=== PATIENT | male | born 1955 | race Caucasian/White ===

== ENCOUNTER 2017-01-09 19:30 | Emergency (ER) | payer OTHER ==
[~2017-01-09] VITALS: Ht 170.2 cm; Wt 90.7 kg
[2017-01-09 19:32] VITALS: TEMP 36.8; Ht 170.2 cm; Wt 90.7 kg
[2017-01-09] MEDS ORDERED: CEFTRIAXONE SOD INJ 1 GM ADDVIAL IV STA (19:40)
--- NOTE | 2017-01-09 19:54 | EMERGENCY ROOM VISIT NOTE ---
History Report prepared by Jocy: Kenneth Watson Under the Supervision of: Dr. Viviana Thomas M.D. First contact with patient: 19:38 Chief Complaint: HEMATURIA Stated Complaint: BLOOD IN URINE,SWELLING History of Present Illness The patient is a 61 year old male who presents to the Emergency Room with complaints of persistent penis pain for the past 1.5 weeks. The patient first noticed the pain when he attempted to "squeeze" his urethra shut to cease voiding when he was about to overflow a bottle. The pain is increased with urination. The patient also noticed a small amount of blood in the toilet bowl ( he was sitting down to urinate). The patient notes that skin appeared to peel off of the head of his penis. He is circumcised. The patient denies scrotal or testicular pain. The patient notes that over one month ago the genital area was struck by the handle of his skid mold unloader. The patient has a history of psoriasis. He has a prescription cream but is not sure if it is a steroid. He follows up with [facility] in [place]. The patient also has history of hemochromatosis. He is a smoker. Source of History: patient Onset: 1.5 weeks ago Position: other (penis) Timing: other (persistent) Modifying Factors (Worsening): urination Associated Symptoms: + urinary symptoms (hematuria) Review of Systems See HPI for pertinent positives & negatives. A total of 10 systems reviewed and were otherwise negative. Past Medical & Surgical Medical Problems: (1) Hemochromatosis (2) Psoriasis Family History No pertinent family history Social History Smoking Status: Current Every Day Smoker Drug Use: none Marital Status: Housing Status: lives with family Occupation Status: employed Current/Historical Medications Scheduled Aspirin (Aspirin Ec), 81 MG PO DAILY Cephalexin Monohydrate (Keflex), 500 MG PO QID Citalopram Hydrobromide (Celexa), 40 MG PO DAILY Meloxicam (Mobic), 7.5 MG PO DAILY Omeprazole (Prilosec), 20 MG PO DAILY Allergies Coded Allergies: No Known Allergies (Unverified , 01/09/17) Physical Exam Vital Signs Date Time Temp Pulse Resp B/P (MAP) Pulse Ox O2 Delivery O2 Flow Rate FiO2 01/09/17 22:15 66 18 153/98 96 01/09/17 20:49 71 01/09/17 19:32 36.8 78 18 169/99 95 Room Air Physical Exam Vital signs reviewed. General: Well-appearing male, in no significant distress. HEENT: No scleral icterus, PERRLA, neck supple. Atraumatic. Cardiovascular: Regular rate and rhythm, no extra sounds. Pulmonary: Clear to auscultation bilaterally, normal work of breathing. Abdomen: Soft, nontender, nondistended, positive bowel sounds. Musculoskeletal: Atraumatic, no peripheral edema. Neurologic: Patient awake alert and oriented x 3, full strength in all 4 extremities. Cranial nerves 2 through 12 grossly intact. Skin: Warm, dry, no rash : Erythema and induration to the glans. Circumcised penis, no discharge, no open lesions. Scrotum is intact. Medical Decision & Procedures Laboratory Results 01/09/17 20:24 Red Blood Count 4.27, Mean Corpuscular Volume 98.6, Mean Corpuscular Hemoglobin 33.7, Mean Corpuscular Hemoglobin Concent 34.2, Mean Platelet Volume 10.3, Neutrophils (%) (Auto) 46.3, Lymphocytes (%) (Auto) 42.5, Monocytes (%) (Auto) 7.8, Eosinophils (%) (Auto) 2.7, Basophils (%) (Auto) 0.4, Neutrophils # (Auto) 3.10, Lymphocytes # (Auto) 2.84, Monocytes # (Auto) 0.52, Eosinophils # (Auto) 0.18, Basophils # (Auto) 0.03 01/09/17 20:24 Test 01/09/17 20:14 01/09/17 20:24 Urine Color DK YELLOW Urine Appearance CLEAR (CLEAR) Urine pH 5.0 (4.5-7.5) Urine Specific [place] 1.022 (1.000-1.030) Urine Protein NEG (NEG) Urine Glucose (UA) NEG (NEG) Urine Ketones TRACE (NEG) Urine Occult Blood NEG (NEG) Urine Nitrite NEG (NEG) Urine Bilirubin NEG (NEG) Urine Urobilinogen NEG (NEG) Urine Leukocyte Esterase NEG (NEG) White Blood Count 6.69 K/uL (4.8-10.8) Red Blood Count 4.27 M/uL (4.7-6.1) Hemoglobin 14.4 g/dL (14.0-18.0) Hematocrit 42.1 % (42-52) Mean Corpuscular Volume 98.6 fL (80-100) Mean Corpuscular Hemoglobin 33.7 pg (25-34) Mean Corpuscular Hemoglobin Concent 34.2 g/dl (32-36) Platelet Count 225 K/uL (130-400) Mean Platelet Volume 10.3 fL (7.4-10.4) Neutrophils (%) (Auto) 46.3 % Lymphocytes (%) (Auto) 42.5 % Monocytes (%) (Auto) 7.8 % Eosinophils (%) (Auto) 2.7 % Basophils (%) (Auto) 0.4 % Neutrophils # (Auto) 3.10 K/uL (1.4-6.5) Lymphocytes # (Auto) 2.84 K/uL (1.2-3.4) Monocytes # (Auto) 0.52 K/uL (0.11-0.59) Eosinophils # (Auto) 0.18 K/uL (0-0.5) Basophils # (Auto) 0.03 K/uL (0-0.2) RDW Standard Deviation 44.3 fL (36.4-46.3) RDW Coefficient of Variation 12.3 % (11.5-14.5) Immature Granulocyte % (Auto) 0.3 % Immature Granulocyte # (Auto) 0.02 K/uL (0.00-0.02) Anion Gap 7.0 mmol/L (3-11) Est Creatinine Clear Calc Drug Dose 58.8 ml/min Estimated GFR () 62.0 Estimated GFR (Non- 53.5 BUN/Creatinine Ratio 14.2 (10-20) Calcium Level 9.0 mg/dl (8.5-10.1) Total Bilirubin 0.2 mg/dl (0.2-1) Direct Bilirubin < 0.1 mg/dl (0-0.2) Aspartate Amino Transf (AST/SGOT) 24 U/L (15-37) Alanine Aminotransferase (ALT/SGPT) 37 U/L (12-78) Alkaline Phosphatase 90 U/L (45-117) Total Protein 6.8 gm/dl (6.4-8.2) Albumin 3.5 gm/dl (3.4-5.0) Laboratory results per my review. Medications Administered Medications (Trade) Dose Ordered Sig/Tia Route Start Time Stop Time Status Last Admin Dose Admin Ceftriaxone Sodium (Rocephin Inj) 1 gm NOW STAT IV 01/09/17 19:40 01/09/17 19:50 DC 01/09/17 20:34 1 GM ED Course 1939: Past medical records reviewed. The patient was evaluated in room B4b. A complete history and physical examination was performed. 1939: Rocephin 1 gm IV. 2144: Reassessed the patient. Discussed the findings with the patient. He verbalized understanding and agreement of the treatment plan. The patient is ready for discharge. Medical Decision Differential Diagnosis: Balanitis, phimosis, paraphimosis, urethritis, trauma. Blood Pressure Screening: Patient was found to have an elevated blood pressure and was referred to their primary doctor for recheck and further treatment. Medication Reconciliation: I attest that I have personally reviewed the patient' s current medication list. This pt was evaluated and appeared to be in no distress. IV access was obtained and lab work was drawn. Pt lab work is unrevealing. UA is negative, no blood. PE is significant for balanitis. He was given IV ceftriaxone (d/t h/o psoriasis of glans and possibility of bacterial involvement) and asked to use clotrimazole cream topically. An US was ordered d/t c/o hematuria, but cancelled with neg UA. Pt was referred to urology and can have outpt UA if necessary. He and his were informed of the findings. He will return to the ED for worsening of symptoms or medical concerns. Impression Primary Impression: Balanitis Scribe Attestation The scribe's documentation has been prepared under my direction and personally reviewed by me in its entirety. I confirm that the note above accurately reflects all work, treatment, procedures, and medical decision making performed by me. Departure Information Dispostion Home / Self-Care Prescriptions Cephalexin Monohydrate (Keflex) 500 Mg Cap 500 MG PO QID, #28 CAP Prov: Viviana Thomas M.D. 01/09/17 Referrals Fer Carvalho M.D. (PCP) Mauro Garner M.D. Forms HOME CARE DOCUMENTATION FORM, IMPORTANT VISIT INFORMATION, WORK / SCHOOL INSTRUCTIONS Patient Instructions ED Debbie, My [facility] Additional Instructions Diagnosis: Balanitis Keflex 500 mg 4 times daily for 7 days. Clotrimazole 1% cream to the tip of the penis 3 times daily for 7 days. Wear underwear and attempt to keep as dry as possible. Wash with a mild soap and water twice daily and dry thoroughly with a clean towel. Follow up with urology within the next 1-2 weeks. See contact information below. The ED binder caser can assist with establishing an appointment. Please call [phone] if you need assistance. Return to the emergency department for worsening of symptoms or any medical concerns.
[2017-01-09 20:38] LABS: BASO % 0.4 %; BASO ABS # 0.03 K/uL (0-0.2); COMPLETE YES; EOS % 2.7 %; HEMATOCRIT 42.1 % (42-52); IG% 0.3 %; LYMPH % 42.5 %; LYMPH ABS # 2.84 K/uL (1.2-3.4); MEAN CELL VOLUME 98.6 fL (80-100); MEAN CORPUSCULAR HEMOGLOBIN 33.7 pg (25-34); MEAN CORPUSCULAR HGB CONC 34.2 g/dl (32-36); MEAN PLATELET VOLUME 10.3 fL (7.4-10.4); MONO % 7.8 %; NEUT % 46.3 %; PLATELET COUNT 225 K/uL (130-400); RED BLOOD COUNT 4.27 M/uL (4.7-6.1); WHITE BLOOD COUNT 6.69 K/uL (4.8-10.8)
[2017-01-09 20:58] LABS: ALT/SGPT 37 U/L (12-78); BLOOD UREA NITROGEN 20 mg/dl (7-18); BUN/CREATININE RATIO 14.2 (10-20); CARBON DIOXIDE 28 mmol/L (21-32); CHLORIDE 107 mmol/L (98-107); GLUCOSE 100 mg/dl (70-99); POTASSIUM 3.8 mmol/L (3.5-5.1); SODIUM 142 mmol/L (136-145)
[2017-01-09] MEDS ORDERED: CITA40TA12 PO (21:00)
[2017-01-09 21:01] LABS: ALKALINE PHOSPHATASE 90 U/L (45-117); AST/SGOT 24 U/L (15-37)
[2017-01-09] MEDS ORDERED: ASPI81TA28 PO (21:01)
[2017-01-09] MEDS ORDERED: PRLSR20 PO (21:01)
[2017-01-09 21:05] LABS: URINE APPEARANCE CLEAR (CLEAR); URINE BILIRUBIN NEG (NEG); URINE COLOR DK YELLOW; URINE NITRITE NEG (NEG); URINE SPECIFIC GRAVITY 1.022 (1.000-1.030); UROBILINOGEN NEG (NEG); ZZUR CULT IF INDIC CLEAN CATCH NO
[2017-01-09 21:06] LABS: MANUAL MICROSCOPIC REQUIRED? NO; REVIEW REQ? NO
[2017-01-09] MEDS ORDERED: MELO7.5T5 PO (21:07)
[2017-01-09] MEDS ORDERED: CEPH500C PO (22:01)
[2017-01-09 22:15] VITALS: BP 153/98; PULSE 66; O2SAT 96
== END 2017-01-09 22:16 | disposition home or self-care (01) ==
LOC: C.EDB 19:33
DX: N48.1 Balanitis (principal); F17.200 Nicotine dependence, unspecified, uncomplicated; Z79.82 Long term (current) use of aspirin; Z79.899 Other long term (current) drug therapy

== ENCOUNTER → 2017-01-14 | Outpatient (CLI) | payer OTHER ==
[~2017-01-14] MED LIST: ASPI81TA28 PO; CEPH500C PO; CITA40TA12 PO; MELO7.5T5 PO; PRLSR20 PO
== END | disposition home or self-care (01) ==
LOC: C.PATHSPEC 15:29
PROVIDERS: ATTEND Urology
DX: R31.9 Hematuria, unspecified (principal)

== ENCOUNTER 2019-01-05 18:30 | Inpatient (IN) ==
--- OUTSIDE RECORDS SUMMARY | 2019-01-05 21:10 | External Medical Summary | Continuity of Care Document ---
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 Kourtney Garner Start: 04-Jan-2018 Quantity: 1 30 GM Tube Refills: 1 Triamcinolone Acetonide 0.1 % External C ream; APPLY 2-3 TIMES DAILY TO AFFECTED AREA(S). Kourtney Garner Start: 04-Jan-2018 Quantity: 1 30 GM Tube Refills: 1 Nystatin [id number] UNIT/GM External Ointmen t; APPLY 2-3 TIMES DAILY TO AFFECTED AREA(S). Kourtney Garner Start: 14-Jan-2017 Quantity: 1 30 GM Tube Refills: 1 Triamcinolone Acetonide 0.1 % External C ream; APPLY 2-3 TIMES DAILY TO AFFECTED AREA(S). Kourtney Garner Start: 14-Jan-2017 Quantity: 1 30 GM Tube Refills: 1 Procedures Procedures not documented Immunizations Immunizations not documented Family History Mother Family history of diabetes mellitus (V18.0) (Z83.3) Status: Active Family history of cardiac disorder (V17.49) (Z82.49) Status: Active Family history of malignant neoplasm of uterus (V16.49) (Z80 .49) Status: Active Father Family history of diabetes mellitus (V18.0) (Z83.3) Status: Active Family history of cardiac disorder (V17.49) (Z82.49) Status: Active Social History - Smoking Status Smoker. current status unknown Plan of Treatment Planned Encounters Appointment; Mauro Garner M.D. Start: 14-Feb-2019 9 :40 Request Planned Observations Planned Goals not documented Results No Known Results Results not documented Encounters Appointment; Mauro Garner M.D. 13-Feb-2018 14:20 Encounter Diagnosis: Problem not documented Appointment; Mauro Garner M.D. 04-Jan-2018 9:55 Encounter Diagnosis: Problem not documented Appointment; Mauro Garner M.D. 14-Jan-2017 12:00 Encounter Diagnosis: Problem not documented Appointment; Mauro Garner M.D. 14-Feb-2019 9:40 Encounter Diagnosis: Problem not documented
[2019-01-05] MEDS ORDERED: ONDANSETRON INJ 2 MG/ML 2 ML VIAL IV PRN (23:16)
--- NOTE | 2019-01-05 23:22 | History & Physical Report ---
Date of Service January 05, 2019 Assessment & Plan (1) GI bleed: 63-year-old male was transferred from [facility] on 05 January 2019 for rectal bleeding. GI bleeding: Noticed for first time on evening of . Darker-red stool. No history of colonoscopy. Denies associated pain or vomiting. Suspect lower GI bleed. - Per accompanying [facility] records, hemoglobin 12.3 at 1516. Heme positive stool. CT a/p with contrast showed scattered diverticula in the sigmoid colon without radiographic evidence of acute diverticulitis. Apparently was transferred due to no GI on-call there this weekend. - On arrival here, afebrile, HR 66, BP 114/66. Has a distended abdomen that is non-tender. - Will make n.p.o. except meds. Start IVF. Serial checks of hemoglobin. Consult gastroenterology. Chest pain: Patient says earlier today he had "pinpricks" in his chest similar to when he had his NSTEMI 2 months ago. On arrival to [facility], denies same or any chest symptoms at all. - At [facility], TnI negative at 1516. Their EKG was read as sinus bradycardia, rate 54, normal axis without acute ST changes. - Will check TnI here and EKG in AM. CKD stage 2: At [facility], Cr 1.6. BUN 28. Will recheck in a.m. Hemochromatosis: Unclear level of severity. Fatty liver: CT a/p with contrast at [facility] incidentally showed "fatty liver, also similar in appearance to ultrasound." Right renal cyst: CT a/p with contrast at [facility] incidentally showed a "probable benign cyst projecting posterior from the midpole of the right kidney. Renal ultrasound in 2016 demonstrated this to be a 12 mm in size has not significantly changed. Ongoing medical issues: - NSTEMI: S/p stents x 2 in October 2018. On lisinopril and metoprolol. --- Holding his aspirin and Plavix due to GI bleed. Also held his fish oil. - Hypertension: On lisinopril. - GERD: On ranitidine. - Depression: On Celexa. - TAM: Wears CPAP at night. Code status: Full code. Diet: N.p.o. except meds. DVT prophy: Chemical prophylaxis held due to GI bleed. SCDs. PT/OT: Deferred. Disbo: Admit to [facility] with telemetry. At baseline lives at home with his . (2) Chest pain: (3) Chronic kidney disease (CKD): (4) Hemochromatosis: (5) Fatty liver: (6) Renal cyst, right: (7) History of non-ST elevation myocardial infarction (NSTEMI): (8) Hypertension: (9) GERD (gastroesophageal reflux disease): (10) Depression: (11) TAM (obstructive sleep apnea): History of Present Illness Primary Care Provider: Fer Carvalho 63-year-old male presented to [facility] earlier on day of admission for a "reddish-brown" bowel movement the night before and then again twice during the day today. He says he has had some intermittent dizziness over the past week but denies this at present. Otherwise he denies any history of bloody bowel movements, abdominal pain, nausea or vomiting, or other acute concerns. Has never had a colonoscopy. However, on review of systems, he says earlier today he had "10 little pinpricks in my chest". He says that this worried him a little bit because this is the same symptom he had prior to more severe chest pain that was ultimately diagnosed as an NSTEMI in October 2018 in [place], now s/p 2 stents. At present, he says that symptom has resolved but was last noticed in the emergency department at [facility]. He denies any concurrent shortness of breath throughout this time. 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 and No Beliefs That Will Affect Care: None Current Living Situation: Spouse Other Information That Helps Us Care for You: No Feels Safe at Home: Yes Safety Concerns: Feels Safe At This Time Smoking Status: Current every day smoker Tobacco Type: cigarettes Cigarettes Per Day: 20 Second Hand Exposure: Yes Tobacco Cessation Education Requested by Patient: No Hx Alcohol Use: No Hx Substance Use: No Review of Systems Review of Systems: Constitutional: Denies fevers, chills, focal weakness Eyes: Denies any visual loss or diplopia ENT: Denies any ear/nose/throat pain or difficulty speaking or swallowing Respiratory: Denies any dyspnea, cough, hemoptysis Cardiovascular: Denies any chest pain or feeling of edema, though did have "pinpricks" Gastrointestinal: Denies any abdominal pain, nausea/vomiting/diarrhea Musculoskeletal: Denies any acute extremity pains, myalgias, or focal weakness Skin: Denies any known acute rashes or lesions Neuro: Denies any headache, acute focal weakness or numbness, or difficulties with speech or swallow. Psych: Denies any recent exacerbation of depression or anxiety Physical Exam Physical Exam: GENERAL: Awake, alert, well-appearing and pleasantly conversational, in no acute distress HENT: Normocephalic, atraumatic. EYES: Normal conjunctiva. Sclera non-icteric. NECK: Inspection normal. Non-tender. Supple and full ROM. No nuchal rigidity. CARDIAC: +S1S2 RRR, no murmurs. RESPIRATORY: Clear to auscultation. No wheezes or rales. Normal respiratory effort. GI: +BS, soft, positive moderately distended. No tenderness to palpation. No rebound or guarding. EXTREMITIES: No pedal edema or calf tenderness. Moving all extremities naturally and easily. NEURO: No gross neuro deficits. Results & Data Vital Signs (Past 12 Hours) Vital Signs Temp Pulse Resp BP Pulse Ox 01/05/19 21:40 36.4 C L 66 20 114/66 92 Code Status & VTE Plan Code Status Full code VTE Prophylaxis Plan VTE Prophylaxis will be ordered: Yes Supervising Physician Co-Signing Physician Notes Attending addendum: I have physically seen this patient, have supervised the medical residents activities, and agree with the H&P unless as otherwise noted. Assessment and Plan: GI bleed/anemia/hemochromatosis with unknown baseline hemoglobin- Transferred from [facility] ED No previous colonoscopy H&H every 6 hours. NPO IV fluids. Consult gastroenterology. Chest pain/CAD/NSTEMI/coronary artery stents x2 in 10/2018- Patient reports pinprick sensation similar to his NSTEMI. The patient will be admitted to telemetry for serial cardiac enzymes, serial EKG's, cardiac rhythm monitoring and a 2-D echocardiogram with Dopplers. Aspirin and clopidogrel both being held due to GI bleed. Consult cardiology. Remainder of orders and notations as noted. PG Care Time/CCT Total # of Minutes Spent Total Time Spent with Patient: Total time spent is greater than 50% in coordination of care (as documented) at patient's floor/unit and/or counseling patient: Resident Activity Tracking Resident Involvement: Resident Care Provided Care Provided: Adult Hospital Medicine
[2019-01-05] MEDS: LACTATED RINGER'S 1,000 ML IV SCH (23:39)
[2019-01-05 23:58] LABS: Hematocrit (blood only) 31.7 % (42-52); Hemoglobin 10.9 g/dL (14.0-18.0)
[2019-01-06 06:40] LABS: Basophils # (auto) 0.01 K/uL (0-0.2); Basophils % (auto) 0.2 %; Eosinophils # (auto) 0.15 K/uL (0-0.5); Eosinophils % (auto) 3.6 %; Hematocrit (blood only) 32.2 % (42-52); Hemoglobin 10.9 g/dL (14.0-18.0); Immature Granulocytes # (auto) 0.01 K/uL (0.00-0.02); Immature Granulocytes % (auto) 0.2 %; Lymphocytes # (auto) 2.08 K/uL (1.2-3.4); Lymphocytes % (auto) 49.9 %; Mean Corpuscular Hgb Conc 33.9 g/dL (32-36); Mean Corpuscular Volume 99.1 fL (80-100); Mean Platelet Volume 9.8 fL (7.4-10.4); Monocytes # (auto) 0.41 K/uL (0.11-0.59); Monocytes % (auto) 9.8 %; Neutrophils # (auto) 1.51 K/uL (1.4-6.5); Neutrophils % (auto) 36.3 %; Platelet Count 193 K/uL (130-400); RDW Coefficient of Variation 12.2 % (11.5-14.5); RDW Standard Deviation 44.1 fL (36.4-46.3); Red Blood Count 3.25 M/uL (4.7-6.1); White Blood Count 4.17 K/uL (4.8-10.8)
[2019-01-06 07:10] LABS: BUN Creatinine Ratio 18.3 (10-20); Calcium 8.8 mg/dl (8.5-10.1); Creatinine Clr Calc Pharmacy 52.5 ml/min; Est GFR (African American) 55.3; Est GFR (Non-African American) 47.7; Potassium 4.5 mmol/L (3.5-5.1)
[2019-01-06] MEDS: LISINOPRIL 5 MG TAB PO SCH (08:26)
[2019-01-06] MEDS: CITALOPRAM 40 MG TAB PO SCH (08:26)
[2019-01-06] MEDS: METOPROLOL TARTRATE 25 MG TAB PO SCH ×2 (08:27→20:34)
--- NOTE | 2019-01-06 09:23 | Hospitalist Progress Note ---
Date of Service January 06, 2019 Assessment & Plan (1) GI bleed: 63-year-old male was transferred from [facility] on 05 January 2019 for rectal bleeding. 4-5 episodes of what patient describes as "plum colored" stools no associated abdominal pain, no vomiting or hematemesis Hb was 12 yesterday, down to 10.9 last night but stable at 10.9 this morning will continue to treat Hb allow clear liquids today continue Protonix Dr. Tavarez consulted, will see later today CT from [facility] showed diverticular disease but no active diverticulitis Right renal cyst: CT a/p with contrast at [facility] incidentally showed a "probable benign cyst projecting posterior from the midpole of the right kidney. Renal ultrasound in 2016 demonstrated this to be a 12 mm in size has not significantly changed. Ongoing medical issues: - NSTEMI: S/p stents x 2 in October 2018. On lisinopril and metoprolol. --- Holding his aspirin and Plavix due to GI bleed. Also held his fish oil. - Hypertension: On lisinopril. - GERD: On ranitidine. - Depression: On Celexa. - TAM: Wears CPAP at night. Code status: Full code. Diet: N.p.o. except meds. DVT prophy: Chemical prophylaxis held due to GI bleed. SCDs. PT/OT: Deferred. Disbo: Admit to [facility] with telemetry. At baseline lives at home with his . (2) Chest pain: no further chest pain today, described a "pin prick" sensation yesterday and last night troponin negative x 2 and no ischemic changes on EKG had NSTEMI 2 months ago with two drug eluting stents placed will resume Aspirin 81mg for time being given his recent stents, continue to hold Plavix but resume once okay with GI if he has chest pain we will get EKG and troponin continue on tele (3) History of non-ST elevation myocardial infarction (NSTEMI): October 2018 no chest pain or cardiac events since that time was taking aspirin and Plavix prior to admission continue on aspirin since stents are recent, hold Plavix (safe since it is more than a month out) if bleeding would fruit or nut picker then hold the aspirin, but bleeding appears to have slowed down or stopped (4) Chronic kidney disease (CKD): stage II Cr stable at 1.52 (5) Hemochromatosis: unsure of what stage this is (6) Fatty liver: can be followed as outpatient (7) Renal cyst, right: (8) Hypertension: BP stable at 107/64 (9) GERD (gastroesophageal reflux disease): Protonix IV (10) Depression: (11) TAM (obstructive sleep apnea): CPAP Subjective patient feels well today, denies any further bloody stools he said that this occurred 4-5x at home, the last time was last evening prior to going to [facility] he described the stools as "plum" colored no abdominal pain, no vomiting, no hematemesis he confirms that the drug eluting stents were placed in October, two months ago no further chest pain, reviewed labs, troponin negative Hb was reportedly 12 at [facility], 10.9 last night and then 10.9 this morning as well ideally should be on the aspirin 81mg due to recent stents, can hold the Plavix will discuss with Dr. Tavarez about whether he needs urgent endoscopy or if it can wait until Tuesday, if so we can feed him Review of Systems Review of Systems: All systems reviewed & are unremarkable except as noted in HPI & below Constitutional: no fever, no chills, no sweats, no fatigue and no weakness Respiratory: no cough and no dyspnea Cardiovascular: no chest pain and no edema Gastrointestinal: + blood in stools (plum colored stools, no pain associated with them); no abdominal pain, no nausea, no vomiting, no constipation and no diarrhea/loose stools Physical Exam Constitutional: WD/WN, vitals as above Eyes: PERRL, conjunctivae normal, anicteric sclerae ENMT: external ear and nose normal, oropharynx normal Neck: trachea midline, no thyromegaly Respiratory: normal respiratory effort, lungs clear to auscultation Cardiovascular: RRR, no murmur, no edema Gastrointestinal (Abdomen): normal bowel sounds, soft, nontender, no hepatosplenomegaly Musculoskeletal: no cyanosis or clubbing, extremities motor strength 5/5 Skin: no rashes, warm and dry Neurologic: patellar DTR's 2+ bilat, sensation intact and PERRL, EOMI, accommodation nl, no face palsy, no dysarthria Psychiatric: A+Ox3, euthymic affect Lymphatic: no cervical or axillary lymphadenopathy Results & Data Vital Signs (Past 12 Hours) Vital Signs Temp Pulse Pulse Resp BP Pulse Ox 01/06/19 09:00 56 L 01/06/19 07:41 36.6 C 51 L 18 107/64 95 01/06/19 04:38 36.1 C L 58 L 20 106/62 94 01/05/19 23:59 62 18 95 01/05/19 23:45 60 01/05/19 23:32 36.8 C 63 18 99/59 L 96 01/05/19 21:40 36.4 C L 66 20 114/66 92 Laboratory Results Laboratory Results - last 24 hr 01/05/19 01/05/19 01/05/19 23:30 23:30 23:30 WBC RBC Hgb 10.9 L Hct 31.7 L MCV MCH MCHC RDW Std Deviation RDW Coeff of Jud Plt Count MPV Immature Gran % (Auto) Neut % (Auto) Lymph % (Auto) [place] % (Auto) Eos % (Auto) Baso % (Auto) Immature Gran # (Auto) Neut # (Auto) Lymph # (Auto) [place] # (Auto) Eos # (Auto) Baso # (Auto) Sodium Potassium Chloride Carbon Dioxide Anion Gap BUN Creatinine Est Cr Clr Drug Dosing Est GFR ( Amer) Est GFR (Non-Af Amer) BUN/Creatinine Ratio Glucose Calcium Troponin I < 0.015 Hepatitis C Ab Screen Neg Blood Type Antibody Screen 01/05/19 01/06/19 01/06/19 23:30 06:16 06:16 WBC 4.17 L RBC 3.25 L Hgb 10.9 L Hct 32.2 L MCV 99.1 MCH 33.5 MCHC 33.9 RDW Std Deviation 44.1 RDW Coeff of Jud 12.2 Plt Count 193 MPV 9.8 Immature Gran % (Auto) 0.2 Neut % (Auto) 36.3 Lymph % (Auto) 49.9 [place] % (Auto) 9.8 Eos % (Auto) 3.6 Baso % (Auto) 0.2 Immature Gran # (Auto) 0.01 Neut # (Auto) 1.51 Lymph # (Auto) 2.08 [place] # (Auto) 0.41 Eos # (Auto) 0.15 Baso # (Auto) 0.01 Sodium 140 Potassium 4.5 Chloride 108 H Carbon Dioxide 27 Anion Gap 5.0 BUN 28 H Creatinine 1.52 H Est Cr Clr Drug Dosing 52.5 Est GFR ( Amer) 55.3 Est GFR (Non-Af Amer) 47.7 BUN/Creatinine Ratio 18.3 Glucose 98 Calcium 8.8 Troponin I Hepatitis C Ab Screen Blood Type O Positive Antibody Screen NEGATIVE 01/06/19 06:16 WBC RBC Hgb Hct MCV MCH MCHC RDW Std Deviation RDW Coeff of Jud Plt Count MPV Immature Gran % (Auto) Neut % (Auto) Lymph % (Auto) [place] % (Auto) Eos % (Auto) Baso % (Auto) Immature Gran # (Auto) Neut # (Auto) Lymph # (Auto) [place] # (Auto) Eos # (Auto) Baso # (Auto) Sodium Potassium Chloride Carbon Dioxide Anion Gap BUN Creatinine Est Cr Clr Drug Dosing Est GFR ( Amer) Est GFR (Non-Af Amer) BUN/Creatinine Ratio Glucose Calcium Troponin I < 0.015 Hepatitis C Ab Screen Blood Type Antibody Screen Medications Administered Current Inpatient Medications Aspirin (Ecotrin Ectab) [facility] [place] Stop: 02/05/19 09:14 Citalopram Hydrobromide (Celexa) 40 mg PO DAILY [facility] Stop: 02/05/19 08:59 Last Admin: 01/06/19 08:26 Dose: 40 mg Documented by: Lactated Ringer's (Lr) 1,000 mls @ 80 mls/hr IV .[id number] [facility] Stop: 02/04/19 23:29 Last Admin: 01/05/19 23:39 Dose: 80 mls/hr Documented by: Lisinopril (Zestril) 5 mg PO QAM [facility] Stop: 02/05/19 08:59 Last Admin: 01/06/19 08:26 Dose: 5 mg Documented by: Metoprolol Tartrate (Lopressor) 12.5 mg PO BID [facility] Stop: 02/05/19 08:59 Last Admin: 01/06/19 08:27 Dose: Not Given Documented by: Ondansetron HCl (Zofran) 4 mg IV Q6H PRN PRN Reason: Nausea Stop: 02/04/19 23:15 Ranitidine HCl (Zantac) 150 mg [facility] [place] Stop: 02/05/19 08:59 Last Admin: 01/06/19 08:26 Dose: 150 mg Documented by: PG Care Time/CCT Total # of Minutes Spent Total Time Spent with Patient: Total time spent is greater than 50% in co ordination of care (as documented) at patient's floor/unit and/or counseling patient:
[2019-01-06] MEDS: ASPIRIN 81 MG ECTAB PO SCH (10:24)
[2019-01-06] MEDS: LACTATED RINGER'S 1,000 ML IV SCH ×2 (11:32→23:16)
[2019-01-06 13:28] LABS: Hematocrit (blood only) 30.4 % (42-52); Hemoglobin 10.3 g/dL (14.0-18.0)
--- NOTE | 2019-01-06 15:00 | Gastrointestinal Consultation ---
Date of Consultation January 06, 2019 Assessment & Plan (1) GI bleed: GI bleed-most likely lower (diverticular) given absence of hemodynamic changes but could be upper with rapid transit (risk of that given ASA use) so cover with po protonix. Plan EGD and colonoscopy tuesday since bleeding has stopped. Proc and risks explained which include but not limited to med reaction, bleeding, perforation, aspiraiton adn missed lesions. Continue on clears. Start prep in am tomorrow to make sure is fully prepped by tuesday acute blood loss anemia--follow and transfuse prn GERD--on PPI History of Present Illness Reason for Consultation: GI bleeding Requesting Physician: Armand Glasgow MD Attending Physician: Flavio Turner DO History of Present Illness CC GI bleeding HPI Pt is on ASA and Plavix for heart stents he had recently. No previous GI bleeding. No EGD nor colonocopy in the past. No abd pain. Had dark red stool starting 01/04 pm went to [facility] with Hgb 12. [address] by their summary (do not see formal report) stated diverticulsoso and fatty liver. Pt last bm last night. Hgb essentially statble at 1300 at 10.3. PMH [place], GERD, hemochromatosis, CKD stage II, fatty liver FHx NC Allergies Allergy/AdvReac Type Severity Reaction Status Date / Time ticagrelor Allergy Shortness Verified 01/05/19 23:42 of breath Home Medications Home Medications Medication Instructions Recorded Confirmed Type ASPIRIN (ASPIRIN EC) 81 mg PO DAILY #0 01/09/17 History CITALOPRAM HYDROBROMIDE (CELEXA) 40 mg PO DAILY #0 tab 01/09/17 History Meloxicam (Mobic) 7.5 mg PO DAILY #0 tab 01/09/17 History OMEPRAZOLE (PRILOSEC) 20 mg PO DAILY #0 cap 01/09/17 History Patient History Social History Preferred Language: Amharic Communication Ability: Effective Farmer Vegetable Required: Yes and No Beliefs That Will Affect Care: None Current Living Situation: Spouse Other Information That Helps Us Care for You: No Feels Safe at Home: Yes Safety Concerns: Feels Safe At This Time Smoking Status: Current every day smoker Tobacco Type: cigarettes Cigarettes Per Day: 20 Second Hand Exposure: Yes Tobacco Cessation Education Requested by Patient: No Hx Alcohol Use: No Hx Substance Use: No Review of Systems Review of Systems: All systems reviewed & are unremarkable except as noted in HPI & below Physical Exam Constitutional: WD/WN, vitals as above Eyes: PERRL, conjunctivae normal, anicteric sclerae ENMT: external ear and nose normal, oropharynx normal Neck: normal visual inspection and trachea midline Respiratory: normal respiratory effort, lungs clear to auscultation Cardiovascular: RRR, no murmur, no edema Gastrointestinal (Abdomen): normal bowel sounds, soft, nontender, no hepatosplenomegaly Skin: normal turgor Neurologic: PERRL, EOMI, accommodation nl, no face palsy, no dysarthria Psychiatric: A+Ox3, euthymic affect Results & Data Vital Signs (Past 12 Hours) Vital Signs Temp Pulse Pulse Resp BP Pulse Ox 01/06/19 11:40 36.5 C 55 L 20 119/71 96 01/06/19 09:00 56 L 01/06/19 07:41 36.6 C 51 L 18 107/64 95 01/06/19 04:38 36.1 C L 58 L 20 106/62 94
[2019-01-06] MEDS: PANTOprazole 40 MG TAB PO SCH ×2 (15:44→20:36)
[2019-01-07 05:58] LABS: Basophils # (auto) 0.02 K/uL (0-0.2); Basophils % (auto) 0.4 %; Eosinophils # (auto) 0.14 K/uL (0-0.5); Eosinophils % (auto) 3.1 %; Hematocrit (blood only) 31.6 % (42-52); Hemoglobin 10.7 g/dL (14.0-18.0); Immature Granulocytes # (auto) 0.02 K/uL (0.00-0.02); Immature Granulocytes % (auto) 0.4 %; Lymphocytes # (auto) 1.58 K/uL (1.2-3.4); Lymphocytes % (auto) 34.8 %; Mean Corpuscular Hgb Conc 33.9 g/dL (32-36); Mean Corpuscular Volume 99.4 fL (80-100); Monocytes # (auto) 0.43 K/uL (0.11-0.59); Monocytes % (auto) 9.5 %; Neutrophils # (auto) 2.35 K/uL (1.4-6.5); Neutrophils % (auto) 51.8 %; Platelet Count 190 K/uL (130-400); RDW Coefficient of Variation 12.1 % (11.5-14.5); RDW Standard Deviation 43.8 fL (36.4-46.3); Red Blood Count 3.18 M/uL (4.7-6.1); White Blood Count 4.54 K/uL (4.8-10.8)
[2019-01-07 06:26] LABS: Partial Thromboplastin Time 25.8 Seconds (21.0-31.0); Prothrombin Time 10.6 Seconds (9.0-12.0)
[2019-01-07 06:28] LABS: Albumin Level 3.1 gm/dl (3.4-5.0); BUN Creatinine Ratio 13.6 (10-20); Calcium 8.5 mg/dl (8.5-10.1); Creatinine Clr Calc Pharmacy 58.7 ml/min; Est GFR (African American) 63.3; Est GFR (Non-African American) 54.6; Potassium 4.1 mmol/L (3.5-5.1)
[2019-01-07 06:40] LABS: Albumin Globulin Ratio 1.1 (0.9-2); Bilirubin,Total 0.4 mg/dl (0.2-1); Globulin 2.7 gm/dl (2.5-4.0); Total Protein 5.8 gm/dl (6.4-8.2)
[2019-01-07] MEDS ORDERED: POLYETHYLENE GLYCOL 3350 238 GM BTL PO SCH (08:00)
[2019-01-07] MEDS: PANTOprazole 40 MG TAB PO SCH ×2 (08:52→21:36)
[2019-01-07] MEDS: CITALOPRAM 40 MG TAB PO SCH (08:52)
[2019-01-07] MEDS: ASPIRIN 81 MG ECTAB PO SCH (08:52)
[2019-01-07] MEDS: LISINOPRIL 5 MG TAB PO SCH (08:52)
[2019-01-07] MEDS: METOPROLOL TARTRATE 25 MG TAB PO SCH ×2 (08:52→21:36)
--- NOTE | 2019-01-07 10:04 | Hospitalist Progress Note ---
Date of Service January 07, 2019 Assessment & Plan (1) GI bleed: 63-year-old male was transferred from [facility] on 05 January 2019 for rectal bleeding. 4-5 episodes of what patient describes as "plum colored" stools no associated abdominal pain, no vomiting or hematemesis had a large bloody BM morning on 01/07, no pain, appears to be a lower GI bleed appreciate GI consult, most likely a diverticular bleed plan for EGD and colonoscopy tomorrow, completing prep today repeat Hb at 2pm today clear liquids, NPO after midnight (2) Chest pain: no further chest pain during admission, described a "pin prick" sensation prior to admission troponin negative x 2 and no ischemic changes on EKG had NSTEMI 2 months ago with two drug eluting stents placed hold aspirin, continue to hold Plavix but resume once okay with GI if he has chest pain we will get EKG and troponin continue on tele (3) History of non-ST elevation myocardial infarction (NSTEMI): October 2018 no chest pain or cardiac events since that time was taking aspirin and Plavix prior to admission will hold aspirin now with large bloody stool this morning, hold Plavix (safe since it is more than a month out) resume antiplatelets as soon as it is okay with GI (4) Chronic kidney disease (CKD): stage II Cr stable at 1.36 (5) Hemochromatosis: unsure of what stage this is (6) Fatty liver: can be followed as outpatient (7) Renal cyst, right: seen on imaging (8) Hypertension: BP stable (9) GERD (gastroesophageal reflux disease): Protonix PO BID Protonix IV is on back order (10) Depression: mood is stable (11) TAM (obstructive sleep apnea): CPAP HS Subjective patient feeling fine, no abdominal pain, no chest pain or dyspnea he started the prep this morning for colonoscopy he had a large, uche bloody BM this morning, first time he has moved bowels in over 24 hours no vomiting, no hematemesis, no epigastric pain Hb was up to 10.7 this morning, this was prior to his hematochezia will recheck at 2pm vitals stable patient requesting to go outside and smoke, offered him a nicotine patch Review of Systems Review of Systems: All systems reviewed & are unremarkable except as noted in HPI & below Constitutional: no fever, no chills, no sweats, no fatigue and no weakness Respiratory: no cough and no dyspnea Cardiovascular: no chest pain and no edema Gastrointestinal: + blood in stools; no abdominal pain, no nausea, no vomiting, no constipation and no diarrhea/loose stools Physical Exam Constitutional: WD/WN, vitals as above Eyes: PERRL, conjunctivae normal, anicteric sclerae ENMT: external ear and nose normal, oropharynx normal Neck: trachea midline, no thyromegaly Respiratory: normal respiratory effort, lungs clear to auscultation Cardiovascular: RRR, no murmur, no edema Gastrointestinal (Abdomen): normal bowel sounds, soft, nontender, no hepatosplenomegaly Musculoskeletal: no cyanosis or clubbing, extremities motor strength 5/5 Skin: no rashes, warm and dry Neurologic: patellar DTR's 2+ bilat, sensation intact and PERRL, EOMI, accommodation nl, no face palsy, no dysarthria Psychiatric: A+Ox3, euthymic affect Lymphatic: no cervical or axillary lymphadenopathy Results & Data Vital Signs (Past 12 Hours) Vital Signs Temp Pulse Pulse Resp BP Pulse Ox 01/07/19 07:17 36.4 C L 56 L 19 117/72 92 01/07/19 07:15 55 L 01/07/19 03:19 36.5 C 54 L 20 113/62 94 01/07/19 01:20 56 L 01/06/19 22:22 36.5 C 59 L 20 121/70 95 Laboratory Results Laboratory Results - last 24 hr 01/06/19 01/07/19 01/07/19 13:17 05:30 05:30 WBC 4.54 L RBC 3.18 L Hgb 10.3 L 10.7 L Hct 30.4 L 31.6 L MCV 99.4 MCH 33.6 MCHC 33.9 RDW Std Deviation 43.8 RDW Coeff of Jud 12.1 Plt Count 190 MPV 10.0 Immature Gran % (Auto) 0.4 Neut % (Auto) 51.8 Lymph % (Auto) 34.8 [place] % (Auto) 9.5 Eos % (Auto) 3.1 Baso % (Auto) 0.4 Immature Gran # (Auto) 0.02 Neut # (Auto) 2.35 Lymph # (Auto) 1.58 [place] # (Auto) 0.43 Eos # (Auto) 0.14 Baso # (Auto) 0.02 PT 10.6 INR 1.0 APTT 25.8 PTT Ratio 1.0 Sodium Potassium Chloride Carbon Dioxide Anion Gap BUN Creatinine Est Cr Clr Drug Dosing Est GFR ( Amer) Est GFR (Non-Af Amer) BUN/Creatinine Ratio Glucose Calcium Total Bilirubin AST ALT Alkaline Phosphatase Total Protein Albumin Globulin Albumin/Globulin Ratio 01/07/19 05:30 WBC RBC Hgb Hct MCV MCH MCHC RDW Std Deviation RDW Coeff of Jud Plt Count MPV Immature Gran % (Auto) Neut % (Auto) Lymph % (Auto) [place] % (Auto) Eos % (Auto) Baso % (Auto) Immature Gran # (Auto) Neut # (Auto) Lymph # (Auto) [place] # (Auto) Eos # (Auto) Baso # (Auto) PT INR APTT PTT Ratio Sodium 140 Potassium 4.1 Chloride 108 H Carbon Dioxide 32 Anion Gap 0 L BUN 18 Creatinine 1.36 Est Cr Clr Drug Dosing 58.7 Est GFR ( Amer) 63.3 Est GFR (Non-Af Amer) 54.6 BUN/Creatinine Ratio 13.6 Glucose 96 Calcium 8.5 Total Bilirubin 0.4 AST 20 ALT 27 Alkaline Phosphatase 63 Total Protein 5.8 L Albumin 3.1 L Globulin 2.7 Albumin/Globulin Ratio 1.1 Medications Administered Current Inpatient Medications Citalopram Hydrobromide (Celexa) 40 mg PO DAILY [facility] Stop: 02/05/19 08:59 Last Admin: 01/07/19 08:52 Dose: 40 mg Documented by: Lactated Ringer's (Lr) 1,000 mls @ 80 mls/hr IV .[id number] [facility] Stop: 02/04/19 23:29 Last Admin: 01/06/19 23:16 Dose: 80 mls/hr Documented by: Lisinopril (Zestril) 5 mg PO QAM [facility] Stop: 02/05/19 08:59 Last Admin: 01/07/19 08:52 Dose: 5 mg Documented by: Metoprolol Tartrate (Lopressor) 12.5 mg PO BID [facility] Stop: 02/05/19 08:59 Last Admin: 01/07/19 08:52 Dose: Not Given Documented by: Miscellaneous (Remove Nicoderm Patch) 1 ea N/A HS [facility] Stop: 02/06/19 20:59 Nicotine (Nicoderm Cq) 14 mg TD QAM [facility] Stop: 02/06/19 09:59 Ondansetron HCl (Zofran) 4 mg IV Q6H PRN PRN Reason: Nausea Stop: 02/04/19 23:15 Pantoprazole Sodium (Protonix) 40 mg PO BID [facility] Stop: 02/05/19 14:54 Last Admin: 01/07/19 08:52 Dose: 40 mg Documented by: PG Care Time/CCT Total # of Minutes Spent Total Time Spent with Patient: Total time spent is greater than 50% in coordination of care (as documented) at patient's floor/unit and/or counseling patient:
[2019-01-07] MEDS: NICOTINE 14 MG/24 HR PATCH TD SCH (12:01)
[2019-01-07] MEDS: LACTATED RINGER'S 1,000 ML IV SCH ×2 (12:01→23:33)
[2019-01-07 15:08] LABS: Hematocrit (blood only) 31.7 % (42-52); Hemoglobin 10.6 g/dL (14.0-18.0)
--- NOTE | 2019-01-07 15:26 | Gastroenterology Progress Note ---
Date of Service January 07, 2019 Assessment & Plan (1) GI bleed: GI bleed-most likely lower (diverticular) given absence of hemodynamic changes but could be upper with rapid transit (risk of that given ASA use) so cover with po protonix. Plan EGD and colonoscopy tuesday since bleeding has stop ped. Proc and risks explained which include but not limited to med reaction, bleeding, perforation, aspiraiton adn missed lesions. Continue on clears. Start prep in am tomorrow to make sure is fully prepped by tuesday acute blood loss anemia--Hgb stable at 10.6 at 1430 so bloody stools from prep GERD--on PPI I am going off service tomorrow 01/08/at [address] Mustafa is assuming GI care then. Subjective cc f/u GI bleeding HPI Sister with patient for H and P. No stools since I saw patient yesterday until after he started bowel prep and he noted bloody stools. No abd pain. Review of Systems Respiratory: no dyspnea Cardiovascular: no chest pain Physical Exam Respiratory: normal respiratory effort, lungs clear to auscultation Cardiovascular: RRR, no murmur, no edema Gastrointestinal (Abdomen): normal bowel sounds, soft, nontender, no hepatosplenomegaly Psychiatric: A+Ox3, euthymic affect Results & Data Vital Signs (Past 12 Hours) Vital Signs Temp Pulse Pulse Resp BP Pulse Ox 01/07/19 15:18 56 L 01/07/19 11:54 36.5 C 54 L 20 137/81 94 01/07/19 07:17 36.4 C L 56 L 19 117/72 92 01/07/19 07:15 55 L
[2019-01-07] MEDS ORDERED: POLYETHYLENE GLYCOL 3350 238 GM BTL PO ONE (21:45)
[2019-01-08 05:44] LABS: Basophils # (auto) 0.01 K/uL (0-0.2); Basophils % (auto) 0.2 %; Eosinophils # (auto) 0.12 K/uL (0-0.5); Eosinophils % (auto) 2.7 %; Hemoglobin 10.5 g/dL (14.0-18.0); Immature Granulocytes # (auto) 0.01 K/uL (0.00-0.02); Immature Granulocytes % (auto) 0.2 %; Lymphocytes # (auto) 1.92 K/uL (1.2-3.4); Lymphocytes % (auto) 43.7 %; Mean Corpuscular Hgb Conc 33.9 g/dL (32-36); Mean Corpuscular Volume 98.4 fL (80-100); Mean Platelet Volume 10.1 fL (7.4-10.4); Monocytes # (auto) 0.42 K/uL (0.11-0.59); Monocytes % (auto) 9.6 %; Neutrophils # (auto) 1.91 K/uL (1.4-6.5); Neutrophils % (auto) 43.6 %; Platelet Count 195 K/uL (130-400); RDW Coefficient of Variation 12.1 % (11.5-14.5); RDW Standard Deviation 43.4 fL (36.4-46.3); Red Blood Count 3.15 M/uL (4.7-6.1); White Blood Count 4.39 K/uL (4.8-10.8)
[2019-01-08 06:16] LABS: Albumin Level 3.3 gm/dl (3.4-5.0); BUN Creatinine Ratio 9.5 (10-20); Calcium 8.8 mg/dl (8.5-10.1); Est GFR (African American) 58.6; Est GFR (Non-African American) 50.5; Potassium 3.8 mmol/L (3.5-5.1)
[2019-01-08 06:19] LABS: Albumin Globulin Ratio 1.3 (0.9-2); Bilirubin,Total 0.4 mg/dl (0.2-1); Globulin 2.6 gm/dl (2.5-4.0); Total Protein 5.9 gm/dl (6.4-8.2)
[2019-01-08] MEDS ORDERED: MAGNESIUM CITRATE 296 ML/BTL PO STA (07:35)
[2019-01-08] MEDS: METOPROLOL TARTRATE 25 MG TAB PO SCH ×2 (08:18→21:00)
[2019-01-08] MEDS: PANTOprazole 40 MG TAB PO SCH ×2 (08:18→21:00)
[2019-01-08] MEDS: LISINOPRIL 5 MG TAB PO SCH (08:18)
[2019-01-08] MEDS: CITALOPRAM 40 MG TAB PO SCH (08:18)
[2019-01-08] MEDS: NICOTINE 14 MG/24 HR PATCH TD SCH (08:19)
--- NOTE | 2019-01-08 14:32 | Anesthesiology Consultation ---
Date of Service January 08, 2019 Assessment & Plan Chart Review Chart Review: Acceptable Risk for Surgery Consults Requested none History Surgery Operation Date: 01/08/19 10:15 Proposed Procedures p Colonoscopy EGD Dr Moon Mustafa Height/Weight Height: 5 ft 7 in Weight: 89.8 kg Allergies Allergy/AdvReac Type Severity Reaction Status Date / Time ticagrelor Allergy Shortness Verified 01/05/19 23:42 of breath Medications Home Medications Medication Instructions Recorded Confirmed Last Taken ASPIRIN (ASPIRIN EC) 81 mg PO DAILY #0 01/09/17 Unknown CITALOPRAM HYDROBROMIDE (CELEXA) 40 mg PO DAILY #0 tab 01/09/17 Unknown Meloxicam (Mobic) 7.5 mg PO DAILY #0 tab 01/09/17 Unknown OMEPRAZOLE (PRILOSEC) 20 mg PO DAILY #0 cap 01/09/17 Unknown Active Medications Generic Name Dose Route Start Last Admin Trade Name Freq PRN Reason Stop Dose Admin Citalopram Hydrobromide 40 mg 01/06/19 09:00 01/08/19 08:18 Celexa PO 02/05/19 08:59 40 mg DAILY [facility] Administration Lisinopril 5 mg 01/06/19 09:00 01/08/19 08:18 Zestril PO 02/05/19 08:59 5 mg QAM [facility] Administration Metoprolol Tartrate 12.5 mg 01/06/19 09:00 01/08/19 08:18 Lopressor PO 02/05/19 08:59 Not Given BID [facility] Miscellaneous 1 ea 01/07/19 21:00 01/07/19 22:51 Remove Nicoderm Patch N/A 02/06/19 20:59 1 ea HS AND[facility]Y Administration Nicotine 14 mg 01/07/19 10:00 01/08/19 08:19 Nicoderm Cq TD 02/06/19 09:59 14 mg QAM [facility]I Administration Pantoprazole Sodium 40 mg 01/06/19 14:55 01/08/19 08:18 Protonix PO 02/05/19 14:54 40 mg BID [facility] Administration NPO Date Last Intake of Fluids: 01/08/19 Time Last Intake of Fluids: 02:00 Last Intake of Fluids Comment: miralax bowel prep in orange powerade Social History Smoking Status: Current every day smoker tobacco type: cigarettes Smoking cigarettes per day: 20 Do You Dip or Chew Tobacco: No Hx Alcohol Use: No Hx Substance Use: No Physical Exam Vital Signs Last Vital Signs Temp 36.7 C 01/08/19 11:28 Pulse 60 01/08/19 11:28 Resp 18 01/08/19 11:28 BP 107/72 01/08/19 11:28 Pulse Ox 93 01/08/19 11:28 Testing Laboratory Results 01/08/19 05:08 01/08/19 05:08 PT 10.6 Seconds (9.0-12.0) 01/07/19 05:30 INR 1.0 (0.9-1.1) 01/07/19 05:30 APTT 25.8 Seconds (21.0-31.0) 01/07/19 05:30 Blood Type O Positive 01/05/19 23:30 Antibody Screen NEGATIVE 01/05/19 23:30
--- NOTE | 2019-01-08 14:41 | History & Physical Report ---
Date of Service January 08, 2019 History of Present Illness Chief Complaint: rectal bleeding Primary Care Provider: Fer Carvalho For EGD and colonoscopy Allergies Allergy/AdvReac Type Severity Reaction Status Date / Time ticagrelor Allergy Shortness Verified 01/05/19 23:42 of breath Home Medications Home Medications Medication Instructions Recorded Confirmed Type ASPIRIN (ASPIRIN EC) 81 mg PO DAILY #0 01/09/17 History CITALOPRAM HYDROBROMIDE (CELEXA) 40 mg PO DAILY #0 tab 01/09/17 History Meloxicam (Mobic) 7.5 mg PO DAILY #0 tab 01/09/17 History OMEPRAZOLE (PRILOSEC) 20 mg PO DAILY #0 cap 01/09/17 History Past Med/Surg History Social History Preferred Language: Hong Konger Communication Ability: Effective Business Continuity Planning Director Required: Yes and No Beliefs That Will Affect Care: None Current Living Situation: Spouse Other Information That Helps Us Care for You: No Feels Safe at Home: Yes Safety Concerns: Feels Safe At This Time Smoking Status: Current every day smoker Tobacco Type: cigarettes Cigarettes Per Day: 20 Do You Dip or Chew Tobacco: No Second Hand Exposure: Yes Tobacco Cessation Education Requested by Patient: No Hx Alcohol Use: No Hx Substance Use: No Physical Exam Constitutional: well developed and well nourished Respiratory: normal respiratory effort Cardiovascular: Rate/Rhythm: regular rate and regular rhythm Gastrointestinal (Abdomen): Percussion/Palpation: abdomen soft Results & Data Vital Signs (Past 12 Hours) Vital Signs Temp Pulse Pulse Resp BP BP Pulse Ox 01/08/19 11:28 36.7 C 60 18 107/72 93 01/08/19 09:56 56 L 01/08/19 07:15 36.6 C 57 L 18 128/78 93 01/08/19 04:10 36.6 C 57 L 18 116/64 92 Code Status & VTE Plan VTE Prophylaxis Plan VTE Prophylaxis will be ordered: Yes
[2019-01-08] MEDS ORDERED: SODIUM CHLORIDE 0.9% 1000ML 1,000 ML IV SCH ×2 (14:45→15:00)
--- NOTE | 2019-01-08 15:27 | GI REPORT ---
Patient Name: Christiano Godwin Procedure Date: 01/08/2019 2:42 PM Date of : 1955 Admit Type: Inpatient Age: 63 Gender: Male Attending MD: Malick Mustafa MD Procedure: Upper GI endoscopy Providers: Malick Mustafa MD Referring MD: Klaus Lizama Md, Fer Carvalho Indications: Hematochezia Medicines: Propofol total dose 330 mg IV, Lidocaine 80 mg IV Complications: No immediate complications. Estimated Blood Loss: Estimated blood loss: none. Procedure: Pre-Anesthesia Assessment: - Prior to the procedure, a History and Physical was performed, and patient medications, allergies and sensitivities were reviewed. The patient's tolerance of previous anesthesia was reviewed. - The risks and benefits of the procedure and the sedation options and risks were discussed with the patient. All questions were answered and informed consent was obtained. After obtaining informed consent, the endoscope was passed under direct vision. Throughout the procedure, the patient's blood pressure, pulse, and oxygen saturations were monitored continuously. The Endoscope was introduced through the mouth, and advanced to the second part of duodenum. The upper GI endoscopy was accomplished without difficulty. The patient tolerated the procedure well. Findings: The Z-line was regular and was found 40 cm from the incisors. LA Grade A (one or more mucosal breaks less than 5 mm, not extending between tops of 2 mucosal folds) esophagitis with no bleeding was found 40 cm from the incisors. The entire examined stomach was normal. The examined duodenum was normal. Impression: - Z-line regular, 40 cm from the incisors. - LA Grade A reflux esophagitis. - Normal stomach. - Normal examined duodenum. - No specimens collected. Recommendation: - Return patient to hospital wing for ongoing care. Malick Mustafa M.D. Malick Mustafa MD 01/08/2019 3:26:56 PM This report has been signed electronically. Note Initiated On: 01/08/2019 2:42 PM Number of Addenda: 0 I attest to the content of the Intraoperative Record and orders documented therein, exceptions below {[id number]}
--- NOTE | 2019-01-08 15:30 | GI REPORT ---
Patient Name: Christiano Godwin Procedure Date: 01/08/2019 2:44 PM Date of : 1955 Admit Type: Inpatient Age: 63 Gender: Male Attending MD: Malick Mustafa MD Procedure: Colonoscopy Providers: Malick Mustafa MD Referring MD: Tito Carbajal . , Fer Carvalho Indications: Rectal bleeding Medicines: Propofol total dose 330 mg IV, Lidocaine 80 mg IV Complications: No immediate complications. Estimated Blood Loss: Estimated blood loss: none. Procedure: Pre-Anesthesia Assessment: - Prior to the procedure, a History and Physical was performed, and patient medications, allergies and sensitivities were reviewed. The patient's tolerance of previous anesthesia was reviewed. - The risks and benefits of the procedure and the sedation options and risks were discussed with the patient. All questions were answered and informed consent was obtained. After I obtained informed consent, the scope was passed under direct vision. Throughout the procedure, the patient's blood pressure, pulse, and oxygen saturations were monitored continuously. The scope was introduced through the anus and advanced to the terminal ileum. The colonoscopy was somewhat difficult. The patient tolerated the procedure well. The quality of the bowel preparation was good. Findings: Non-bleeding internal hemorrhoids were found during endoscopy. The hemorrhoids were mild. A few diverticula were found in the sigmoid colon. A small amount of stool was found in the entire colon, without interference to visualization. The distal ileum contained red blood. Impression: - Non-bleeding internal hemorrhoids. - Diverticulosis in the sigmoid colon. - Stool in the entire examined colon. - Blood in the distal ileum. - No specimens collected. Recommendation: - Return patient to hospital wing for ongoing care. Malick Mustafa M.D. Malick Mustafa MD 01/08/2019 3:29:52 PM This report has been signed electronically. Note Initiated On: 01/08/2019 2:44 PM Number of Addenda: 0 I attest to the content of the Intraoperative Record and orders documented therein, exceptions below {[id number]}
[2019-01-08] MEDS ORDERED: LIDOCAINE HCL 2% 2 ML VIAL/AMP(20MG/ML) INFIL ONE (15:32)
[2019-01-08] MEDS ORDERED: PROPOFOL IV EMULSION 10 MG/ML 20 ML VIAL IV ONE (15:32)
--- NOTE | 2019-01-08 15:35 | Anesthesiology Progress Note ---
Date of Service January 08, 2019 Anesthesia Post Procedure Vital Signs Vital Signs: Temp Pulse Pulse Resp BP BP Pulse Ox 01/08/19 14:36 36.8 C 58 L 18 160/97 H 95 01/08/19 11:28 36.7 C 60 18 107/72 93 01/08/19 09:56 56 L 01/08/19 07:15 36.6 C 57 L 18 128/78 93 01/08/19 04:10 36.6 C 57 L 18 116/64 92 01/08/19 01:06 69 01/07/19 23:59 36.7 C 61 20 155/82 H 95 01/07/19 19:22 36.5 C 55 L 22 152/81 H 93 01/07/19 15:50 36.2 C L 54 L 20 134/79 94 Pain Intensity Left Abdomen: Pain Intensity: 3 Transfer of Care Handoff Completed per policy Notes Mental Status: alert / awake / arousable and participated in evaluation Patient Amnestic to Procedure: Yes Nausea / Vomiting: adequately controlled Pain: adequately controlled Airway Patency, RR, SpO2: stable & adequate BP & HR: stable & adequate Hydration State: stable & adequate Anesthetic Complications: no major complications apparent
--- NOTE | 2019-01-08 16:32 | Progress Note ---
DATE: 01/08/2019 The patient underwent EGD and colonoscopy for his rectal bleeding. EGD was normal except for very mild distal esophagitis, which was not a source of blood loss. There was no blood anywhere in the upper digestive tract. In the lower exam, the patient had mild diverticulosis and some blood throughout his colon. The blood was bright red. The distal ileum was difficult to intubate, but I was able to get in for a short period of time and there were some fresh blood and small clot in the distal ileum indicating that the bleeding is coming from small bowel source. IMPRESSION AND PLAN: The patient's rectal bleeding appears to be from small bowel source. Plan on getting a bleeding scan to see if we can localize the potential source and if so and if it continues to bleed, we may need to refer him for Interventional Radiology. If the bleeding stops and he remains stable, then we can schedule him for a small bowel video capsule procedure as an outpatient to try to localize the source of bleeding. [facility]
[2019-01-08 17:23] LABS: Hemoglobin 10.4 g/dL (14.0-18.0)
--- NOTE | 2019-01-08 19:12 | Hospitalist Progress Note ---
Date of Service January 08, 2019 Assessment & Plan (1) GI bleed: 63-year-old male was transferred from [facility] on 05 January 2019 for rectal bleeding. 4-5 episodes of what patient describes as "plum colored" stools no associated abdominal pain, no vomiting or hematemesis had a large bloody BM morning on 01/07, no pain, appears to be a lower GI bleed appreciate GI consult, most likely a diverticular bleed plan for EGD and colonoscopy tomorrow, completing prep today repeat Hb at 2pm today clear liquids, NPO after midnight (2) Chest pain: no further chest pain during admission, described a "pin prick" sensation prior to admission troponin negative x 2 and no ischemic changes on EKG had NSTEMI 2 months ago with two drug eluting stents placed hold aspirin, continue to hold Plavix but resume once okay with GI if he has chest pain we will get EKG and troponin continue on tele (3) History of non-ST elevation myocardial infarction (NSTEMI): October 2018 no chest pain or cardiac events since that time was taking aspirin and Plavix prior to admission will hold aspirin now with large bloody stool this morning, hold Plavix (safe since it is more than a month out) resume antiplatelets as soon as it is okay with GI (4) Chronic kidney disease (CKD): stage II Cr stable at 1.36 (5) Hemochromatosis: unsure of what stage this is (6) Fatty liver: can be followed as outpatient (7) Renal cyst, right: seen on imaging (8) Hypertension: BP stable (9) GERD (gastroesophageal reflux disease): Protonix PO BID Protonix IV is on back order (10) Depression: mood is stable (11) TAM (obstructive sleep apnea): CPAP HS Results & Data Vital Signs (Past 12 Hours) Vital Signs Temp Pulse Pulse Resp BP BP Pulse Ox 01/08/19 16:45 36.2 C L 53 L 19 125/71 93 01/08/19 16:15 36.2 C L 555 H 21 134/78 95 01/08/19 15:58 52 L 18 115/67 96 01/08/19 15:44 55 L 18 124/73 99 01/08/19 15:29 53 L 18 100/64 94 01/08/19 14:36 36.8 C 58 L 18 160/97 H 95 07/01/19 11:28 36.7 C 60 18 107/72 93 01/08/19 09:56 56 L 01/08/19 07:15 36.6 C 57 L 18 128/78 93 PG Care Time/CCT Total # of Minutes Spent Total Time Spent with Patient: Total time spent is greater than 50% in coordination of care (as documented) at patient's floor/unit and/or counseling patient:
--- NOTE | 2019-01-08 19:34 | Nuclear Medicine Report ---
TAGGED RED BLOOD CELL GI BLEEDING SCAN CLINICAL HISTORY: GI bleed -appears to be from SB COMPARISON STUDY: CT of the abdomen and pelvis January 05, 2019. TECHNIQUE: Following the IV administration of 29.1 mCi of technetium 99m UltraTag labeled red blood c ells, nuclear bleeding scan was performed. Anterior flow images were obtained every 2 seconds for a t otal 48 seconds. Anterior static images were obtained every 5 minutes for a total of 60 minutes. FINDINGS: Note is made of a small focus of transient radiotracer uptake within the right abdomen, ju st inferior to the right hepatic lobe. No additional foci of abnormal radiotracer uptake are identifi ed. Otherwise, radiotracer distribution is normal. IMPRESSION: Small focus of tracer radiotracer uptake within the right abdomen which projects inferio r to the right hepatic lobe. Although this could be artifactual, this favors an active GI bleed and m ay be within the hepatic flexure of the colon or small bowel. Electronically signed by: Vu Simons M.D. 01/08/2019 7:33 PM
[2019-01-08] MEDS ORDERED: LACTATED RINGER'S 1,000 ML IV SCH (19:45)
--- NOTE | 2019-01-08 20:17 | Discharge Summary ---
Date of Service January 08, 2019 Admission HPI Per Admitting Provider 63-year-old male presented to [facility] earlier on day of admission for a "reddish-brown" bowel movement the night before and then again twice during the day today. He says he has had some intermittent dizziness over the past week but denies this at present. Otherwise he denies any history of bloody bowel movements, abdominal pain, nausea or vomiting, or other acute concerns. Has never had a colonoscopy. However, on review of systems, he says earlier today he had "10 little pinpricks in my chest". He says that this worried him a little bit because this is the same symptom he had prior to more severe chest pain that was ultimately diagnosed as an NSTEMI in October 2018 in [place], now s/p 2 stents. At present, he says that symptom has resolved but was last noticed in the emergency department at [facility]. He denies any concurrent shortness of breath throughout this time. Principal Diagnosis GI bleed, acute blood loss anemia Discharge Exam Constitutional WD/WN, vitals as above Eyes PERRL, conjunctivae normal, anicteric sclerae ENMT external ear and nose normal, oropharynx normal Neck trachea midline, no thyromegaly Respiratory normal respiratory effort, lungs clear to auscultation Cardiovascular RRR, no murmur, no edema Gastrointestinal (Abdomen) normal bowel sounds, soft, nontender, no hepatosplenomegaly Musculoskeletal Extremities: extremities normal to inspection; no cyanosis and no clubbing Skin no rashes, warm and dry Neurologic moves all extremities and awake; no focal motor deficits Psychiatric A+Ox3, euthymic affect Discharge Data Allergies Allergy/AdvReac Type Severity Reaction Status Date / Time ticagrelor Allergy Shortness Verified 01/05/19 23:42 of breath Consultations 01/05/19 23:16 Consult Gastroenterology Routine Procedures Performed Operation Date: 01/08/19 10:15 Actual Procedures p Esophagogastroduodenoscopy - Malick esteban Colonoscopy - Malick Mustafa Nuclear medicine red blood cell tagged bleeding screen Hospital Course (1) GI bleed: This patient is a 63-year-old male who was transferred from [facility] on 05 January 2019 for rectal bleeding. He initially at home had 4-5 episodes of what patient describes as "plum colored" stools no associated abdominal pain, no vomiting He remains hemodynamically stable had a large bloody BM morning on 01/07, no pain, and then had continued bright red blood throughout the day on 01/08 EGD showed grade a reflux esophagitis Colonoscopy showed blood throughout the entire colon and into the terminal ileum RBC tagged scan then showed active GI bleed in the right upper quadrant likely in the small bowel versus hepatic flexure, however colonoscopy showed that there was blood beyond the hepatic flexure and no active bleeding there so therefore he has a small intestinal bleed most likely. Could be AVM. He needs interventional radiology evaluation-will be transferred urgently to [facility] in [place] with accepting physician Dr. Андрей Tavarez Appreciate GI consult here Hemoglobin dropped from 12.3 at outside hospital to 10.5 here and remained stable for the last 3 days despite continued bleeding He was on aspirin and Plavix as well as meloxicam prior to admission which is no doubt contributing to his continued bleeding -We will continue to hold aspirin Plavix but needs to get back on one or the other of these MALINDA given history of cardiac stent placement in 10/2018 (2) Chest pain: no further chest pain during admission, described a "pin prick" sensation prior to admission troponin negative x 2 and no ischemic changes on EKG had NSTEMI 2 months ago with two drug eluting stents placed -We will continue to hold aspirin, continue to hold Plavix but resume once okay with GI He had no significant events on telemetry, no chest pain during his admission here (3) History of non-ST elevation myocardial infarction (NSTEMI): October 2018 no chest pain or cardiac events since that time was taking aspirin and Plavix prior to admission -Continue to hold aspirin and Plavix as above given continued GI bleeding resume antiplatelets as soon as it is okay with GI -Continue atorvastatin, metoprolol, lisinopril with hold parameters for blood pressure (4) Chronic kidney disease (CKD): stage III Cr stable at 1.45 today -Follow BMP -Restart LR at 80 mL's per hour -Renally dose medications -Avoid nephrotoxins (5) Hemochromatosis: Routinely has phlebotomies No evidence of cirrhosis (6) Fatty liver: can be followed as outpatient (7) Renal cyst, right: seen on imaging incidentally (8) Hypertension: BP stable -Continue lisinopril, metoprolol as above with hold parameters (9) GERD (gastroesophageal reflux disease): Continue PPI (10) Depression: mood is stable -Continue Celexa although this does increase his risk of GI bleeding with SSRIs and antiplatelets (11) TAM (obstructive sleep apnea): Continue CPAP HS Disposition-patient to be urgently transferred to [facility] in [place] for interventional radiology evaluation for GI bleeding most likely the small intestine Case discussed with the on-call biazzi nitrator operator Total Time Total Time Spent Total Time Spent (In Minutes): Greater than 30 minutes Total Time Includes: Examination of the Patient, Discharge Planning, Medication Reconciliation and Communication With Other Providers Discharge Plan Discharge Items Patient Disposition: Transfer Acute Care Hospital Reason For Visit: GI BLEED Discharge Diagnosis: GI bleed Condition: Fair Discharge Goals: Diagnostic testing, Improve disease control, Learn about illness and Therapeutic intervention Activity: As commented below Lifting: None Bathing: No limitations Exercise/Sports: Rest today Non-emergency contact: Primary Care Provider and Customer Service Voice Call non-emergency contact if: your symptoms worsen Follow-up/Referrals: Fer Carvalho [Primary Care Provider] - Diet: Nothing by mouth Addtl Provider Instructions: Transferred urgently to [facility] in [place] for interventional radiology for GI bleed. Prescriptions: Continued CITALOPRAM HYDROBROMIDE (CELEXA) 40 MG tablet 40 mg PO DAILY Qty: 0 RF: 0 OMEPRAZOLE (PRILOSEC) 20 MG CONTR REL CAP 20 mg PO DAILY Qty: 0 RF: 0 atorvastatin 40 mg tablet 40 mg PO DAILY RF: 0 nitroglycerin 0.4 mg tablet, sublingual 0.4 mg sublingual Q5M PRN (Reason: Chest Pain) RF: 0 lisinopril 5 mg tablet 5 mg DAILY RF: 0 metoprolol tartrate 25 mg tablet 12.5 mg PO BID RF: 0 Discontinued ASPIRIN (ASPIRIN EC) 81 MG tablet 81 mg PO DAILY Qty: 0 RF: 0 Meloxicam (Mobic) 7.5 MG tablet 7.5 mg PO DAILY Qty: 0 RF: 0 clopidogrel 75 mg tablet 75 mg PO DAILY RF: 0 Stand-Alone Forms: [facility] Discharge Orders: Discharge Order (Routine); Ordered 01/08/19 Ordered By: Patti May Admission Data Admit Date/Time: 01/05/19 21:06 Attending Provider: Patti May Admit Provider: Armand Glasgow Primary Care Provider: Fer Carvalho Other Providers: Omari Tavarez Service: Medical Other Pending Studies at Discharge: No
== END 2019-01-09 02:13 | disposition short-term general hospital (02) | DRG 378 ==
LOC: 2W 21:06 → SUATTDRO 21:06